=== PATIENT | male | born 1970 | race Caucasian/White ===

== ENCOUNTER 2020-04-02 11:45 | Emergency (ER) | payer OTHER, SELFPAY ==
--- NOTE | ~2020-04-02 | XR_ITS ---
EXAMINATION: XR elbow RT min 3V EXAM DATE: 04/02/2020 12:38 INDICATION: Right elbow painful and swollen, no known recent injury. TECHNIQUE: Right elbow frontal, lateral with flexion, and oblique projections obtained and reviewed. Comparison is made to prior examination from 04/24/2004. FINDINGS: Right elbow anterior humeral line intact. There are no acute fractures or dislocations karlie ntified. There is no subcutaneous gas. Swelling over the olecranon, could indicate olecranon bursit is. Please clinically correlate. Small amount of spurring of the coronoid process. There are no radi opaque foreign bodies. IMPRESSION: Posterior swelling, possible olecranon bursitis. Reviewed, dictated and finalized at location [facility]
[2020-04-02 12:02] VITALS: BP 141/95; PULSE 83; RESP 20; TEMP 37.4; O2SAT 100
--- NOTE | 2020-04-02 12:22 | ED.WOUNDLAC ---
HPI - Wound/Laceration General Chief Complaint: Wound/Laceration Stated Complaint: wound Time Seen by Provider: 04/02/20 12:23 Source: patient and RN notes reviewed Mode of arrival: ambulatory Limitations: no limitations History of Present Illness HPI narrative: 49-year-old male presents with concern for right elbow redness, warmth, swelling, pain, tenderness. Reports he noticed the symptoms after a [address] where his arm was sitting on the armrest of a car. He denies any direct injury, trauma. Denies any intervention for his symptoms. Reports a scab on the elbow that had a small amount of drainage. Denies fever, general malaise, decreased sensation, range of motion, strength in the right arm or hand Related Data Home Medications Medication Instructions Recorded Confirmed bupropion HCl 150 mg PO DAILY 04/02/20 04/02/20 escitalopram oxalate 10 mg DAILY 04/02/20 04/02/20 lisinopril-hydrochlorothiazide 1 tablet DAILY 04/02/20 04/02/20 naproxen 500 mg BID 04/02/20 04/02/20 omeprazole 20 mg DAILY 04/02/20 04/02/20 Allergies Allergy/AdvReac Type Severity Reaction Status Date / Time No Known Allergies Allergy Unverified 04/28/12 20:04 Review of Systems Review of Systems: Narrative: CONSTITUTIONAL: Denies malaise, chills, sweats, or fever. CARDIOVASCULAR: Denies chest pain, palpitations RESPIRATORY: Denies cough or dyspnea. SKIN: Scab on the right elbow MUSCULOSKELETAL: Reports right elbow pain, warmth, redness, tenderness NEUROLOGIC: Denies numbness, weakness All systems reviewed & are unremarkable except as noted in HPI and below PMFSH Social History Social History Gender identity (if verbalized by the patient): Male Comments At time of signature, agree with nursing past medical, surgical, social and family history. There is no relevant family history pertinent to the presenting complaint Exam Narrative: Exam Narrative: GENERAL: Well-appearing, well-nourished, and in no acute distress. HEAD: Normocephalic, atraumatic. EYES: PERRLA, conjunctivae clear NECK: Supple. CHEST: Speaks in full sentences. No respiratory distress. HEART: Regular rate and rhythm. Normal and equal peripheral pulses. EXTREMITIES: Right elbow has normal strength and sensation, normal range of motion. Moderate lateral elbow edema, erythema,, tenderness. No ecchymosis. 5/5 strength with elbow flexion and extension. Normal sensation with sensitivity to light touch and pain. No point tenderness. No open wounds, no skin tenting, no devitalized tissue or atrophy, no trophic changes, no obvious deformity, alignment normal, nearby joints and structures intact. Distal pulses palpable and equal bilaterally, skin warm, dry, pink. Capillary refill less than 3 seconds. SKIN: Warm, dry, no rash. Lateral elbow has a scab surrounded by erythema, induration, tenderness NEURO: Alert and oriented x3. PSYCH: Normal mood and affect Course Course Emergency Course: Patient is aware of diagnosis, understands and agrees to treatment plan. Anticipatory guidance given. Patient agrees to follow-up as directed and is aware of reasons to seek care at the emergency department. Portions of this record may have been created with voice recognition software Vital Signs Vital signs: Vital Signs Temperature 99.4 F 04/02/20 12:02 Pulse Rate 83 04/02/20 12:02 Respiratory Rate 20 04/02/20 12:02 Blood Pressure 141/95 H 04/02/20 12:02 Pulse Oximetry 100 04/02/20 12:02 Temperature 99.4 F 04/02/20 12:02 Pulse Rate 83 04/02/20 12:02 Respiratory Rate 20 04/02/20 12:02 Blood Pressure 141/95 H 04/02/20 12:02 Pulse Oximetry 100 04/02/20 12:02 Reviewed. Patient has history of hypertension MDM - Wound/Laceration MDM Narrative Medical decision making narrative: Exam findings and imaging show no acute concerns or changes; patient is non-toxic appearing and is in no distress. Patient is appropriate for outpatient treatment and follow-up. Differ
== END 2020-04-02 12:50 | disposition home or self-care (01) ==
PROVIDERS: Emergency Provider Nurse Practitioner; PCP Physician Assistant
DX: L03.113 Cellulitis of right upper limb (principal); M70.21 Olecranon bursitis, right elbow; I10 Essential (primary) hypertension; K21.9 Gastro-esophageal reflux disease without esophagitis; F32.9 Major depressive disorder, single episode, unspecified
CPT/HCPCS: 73080; 99213; G0463

== ENCOUNTER 2025-03-03 11:55 | Emergency (ER) | payer OTHER, SELFPAY ==
--- NOTE | 2025-03-03 11:56 | ED.DENTAL ---
HPI - Dental/Oral General Chief complaint: Dental/Oral Stated complaint: Dental Infection Time Seen by Provider: 03/03/25 11:56 Source: patient Mode of arrival: ambulatory Limitations: no limitations History of Present Illness HPI Narrative: Carson is a 54 year old male patient to the clinic today with c/o dental infection x 1.5 weeks. He reports he is having dental pain and mild swelling to the left lower jaw. Denies any fevers, chills, body aches. Has taken Tylenol for his symptoms. Related Data Home Medications ?Medication ?Instructions ?Recorded ?Confirmed ?Last Taken ?Type bupropion HCl 150 mg 24 hr tablet, 150 mg PO DAILY 04/02/20 04/02/20 Unknown History extended release escitalopram oxalate 20 mg tablet mg 03/03/25 Unknown History indomethacin 50 mg capsule mg 03/03/25 Unknown History Allergies Allergy/AdvReac Type Severity Reaction Status Date / Time No Known Allergies Allergy Verified 03/03/25 12:05 Review of Systems Review of Systems: Pertinent positives per HPI. Patient denies any fever, chills, rash, headache, visual changes, dizziness, cough, runny nose, sore throat, shortness of breath, chest pain, palpitations, nausea, vomiting, diarrhea, constipation, abdominal pain, or any urinary issues. PMFSH Social History Social History Gender identity (if verbalized by the patient): Male Comments At the time of my signature, I reviewed and agree with the nursing past medical, surgical, social, and family history. There is no relevant family history pertinent to the patient complaint. Exam Narrative: General: Well-developed, well nourished, in no apparent distress Head: Normocephalic, atraumatic Eyes: Pupils equally round and reactive to light bilaterally, EOM intact, sclera and conjunctive clear, no discharge, lids normal Ears: TMs intact and clear, ear canals clear, no drainage, grossly hearing normal. Nose: Nares patent, no discharge, no inflammation, no sinus tenderness. Mouth: Oropharynx without lesions or masses, MMM. Poor dentition with tenderness to palpation over the premolar, 1st molar, and 2nd molar to the left lower jaw. Gingival swelling noted, no visible or palpable abscess. Neck: Supple, trachea midline, no enlargement of anterior or posterior cervical nodes, no thyroid masses or goiter palpable. Cardio: Regular rate and rhythm, s1 and s2 normal, no murmur appreciated. Resp: Clear to auscultation bilaterally anteriorly and posteriorly, no rhonchi, rales, wheezing or rubs Course Course Emergency Course: Portions of this record may have been created with voice recognition software. Level of Care: Express Care Visit Vital Signs Vital signs: Vital signs reviewed MDM - Dental/Oral MDM Narrative Medical decision making narrative: At the time of visit patient is resting comfortably on the exam table. Patient appears to be nontoxic. C/o dental infection x 1.5 weeks. He reports he is having dental pain and mild swelling to the left lower jaw. Denies any fevers, chills, body aches. Has taken Tylenol for his symptoms. On exam patient has poor dentition with tenderness to palpation over the premolar, 1st molar, and 2nd molar to the left lower jaw. Gingival swelling noted, no visible or palpable abscess. Plan: I suspect patient has toothache/dental infection. Prescription for amoxicillin was sent to the pharmacy. Supportive measures were discussed with the patient and they voiced understanding discharge instructions and agrees to treatment plan. Return precautions reviewed Differential Diagnosis Differential diagnosis: Likely gingival abscess, dental caries, toothache, dental abscess, fracture of tooth and aphthous ulcer Discharge Plan Discharge Clinical Impression: Toothache Patient Disposition: Home Condition: Stable Instructions: Antibiotic Form, Toothache (ED) Additional Instructions: Take medications as prescribed-amoxicillin Increase fluids and stay well hydrated May take Tylenol/Motrin as needed for pain or fever May apply Orajel to the affected area to help alleviate pain May apply warm or cool compress to the affected area to help alleviate pain Follow-up with your dentist as soon as possible Patient Language: Azeri Prescriptions: New amoxicillin 875 mg tablet 875 mg PO Q12H 10 Days Qty: 20 0RF No Action bupropion HCl 150 mg tablet extended release 24 hr 150 mg PO DAILY indomethacin 50 mg capsule escitalopram oxalate 20 mg tablet Follow-up/Referrals: Melecio,WILLOW Peacock [Primary Care Provider, Unknown] Time of Disposition: 12:04 Quality NIHSS Nursing Documentation ED NIHSS nursing documentation: reviewed/agree
[2025-03-03 12:00] VITALS: BP 149/100; PULSE 80; RESP 16; TEMP 36.6; O2SAT 99
== END 2025-03-03 12:10 | disposition home or self-care (01) ==
PROVIDERS: Emergency Provider Nurse Practitioner Family; PCP Nurse Practitioner
DX: K08.89 Other specified disorders of teeth and supporting structures (principal); Z79.899 Other long term (current) drug therapy
CPT/HCPCS: 99213; G0463